=== PATIENT | male | born 1945 | race Caucasian/White ===

== ENCOUNTER 2017-07-12 14:03 | Outpatient (CLI) | payer MEDICARE, BC ==
[~2017-07-12 14:03] MED LIST: NORCO 5-325 TA1 EACH ORAL; VALIUM5 MG ORAL
--- NOTE | 2017-07-12 21:49 | Diagnostic Imaging Report ---
Indication: Cough Comparison: 04/01/2015 2 views of the chest obtained. Bones are osteopenic. Heart size is normal. The lungs are essentially clear. There may be some mild scarring at the left lung base. IMPRESSION: No acute disease
== END 2017-07-12 16:03 | disposition home or self-care (01) ==
LOC: RAD 14:03
DX: R05 Cough (principal); B20 Human immunodeficiency virus [HIV] disease; M85.80 Other specified disorders of bone density and structure, unspecified site
CPT/HCPCS: 71046